=== PATIENT | male | born 1950 | race Native Hawaiian/Other Pacific Islander ===

== ENCOUNTER 2021-10-09 09:29 | Outpatient (CLI) | payer OTHER | END 2021-10-09 18:54 | disposition home or self-care (01) | LOC: RAD 09:29 | PROVIDERS: ATTEND Internal Medicine | DX: R05.9 Cough, unspecified (principal); C61 Malignant neoplasm of prostate ==

== ENCOUNTER 2021-12-28 14:44 | Outpatient (CLI) | payer OTHER | END 2021-12-28 20:49 | disposition home or self-care (01) | LOC: RAD 14:44 | PROVIDERS: ATTEND Internal Medicine Sleep Medicine | DX: R05.3 Chronic cough (principal) ==

== ENCOUNTER 2023-02-25 01:46 | Emergency (ER) | payer OTHER, MEDICARE ==
[~2023-02-25] VITALS: Ht 180.3 cm; Wt 99.8 kg
[2023-02-25 03:20] LABS: PLATELET COUNT 135 K/uL (142-355)
[2023-02-25 03:51] LABS: POTASSIUM 4.4 mmol/L (3.6-5.2)
== END 2023-02-25 03:58 | disposition home or self-care (01) ==
LOC: ED 01:46
PROVIDERS: Family Medicine
DX: G62.9 Polyneuropathy, unspecified (principal); C85.90 Non-Hodgkin lymphoma, unspecified, unspecified site; M71.9 Bursopathy, unspecified; C61 Malignant neoplasm of prostate
CPT/HCPCS: 36415; 80053; 82550; 83735; 85007; 85027; 96372; 99283; J1100; J1885